=== PATIENT | male | born 1985 | race Caucasian/White ===

== ENCOUNTER 2018-09-01 09:57 | Emergency (ER) | payer OTHER, SELFPAY ==
[2018-09-01 10:03] VITALS: BP 144/103; PULSE 66; RESP 14; TEMP 36.7; O2SAT 100; BMI 32.1
--- NOTE | 2018-09-01 11:09 | ED.BACK ---
HPI - Back Pain/Injury <Salena Montana PA-C - Last Filed: 09/01/18 16:04> General Chief Complaint: Back Pain/Injury Stated Complaint: SEVERE BACK PAIN Time Seen by Provider: 09/01/18 11:09 Source: patient Mode of arrival: ambulatory Limitations: no limitations History of Present Illness HPI Narrative: This healthy 33-year-old male injured his back at on Thursday. He states that he was shoveling snow and started to feel some straining or pulling on his back, then shortly thereafter had sharp pain in his low back and due to this unable to bend and difficulty straightening up. He denies any radiation of the pain into his legs or elsewhere in the back. He indicates it is in the center of his back and a little bit on the right side. He denies any paresthesia in the extremities. He denies any extremity weakness. He denies any groin numbness. He denies any bowel or bladder changes. He states that he rested at home yesterday and has been taking high doses of naproxen, that initially seemed to help a little bit but states he is unable to straighten up now or get comfortable due to the pain. He states that he has some history of arthritis in his back and minor strains but nothing this severe and was not having any problems prior to this injury. He has occasionally used muscle relaxants and pain meds but not needed recently. Related Data Home Medications Medication Instructions Recorded Confirmed No Known Home Medications 09/01/18 09/01/18 Previous Rx's Medication Instructions Recorded cyclobenzaprine 10 mg PO Q8H PRN #14 tab 09/01/18 hydrocodone-acetaminophen [[place]] 1 tab PO Q6H PRN #5 tab 09/01/18 Allergies Allergy/AdvReac Type Severity Reaction Status Date / Time No Known Drug Allergies Allergy Verified 09/01/18 10:19 Review of Systems <Salena Montana PA-C - Last Filed: 09/01/18 16:04> Review of Systems ROS Unobtainable: All systems reviewed & are unremarkable except as noted in HPI and below PFSH <Salena Montana PA-C - Last Filed: 09/01/18 16:04> Medical History Lumbar degenerative disc disease (Chronic) Surgical History No history of previous surgery (Chronic) Social History Smoking Status: Current every day smoker Social History Smoking Status: Current every day smoker Comment: occ ETOH Exam <Salena Montana PA-C - Last Filed: 09/01/18 16:04> Narrative Exam Narrative: GENERAL APPEARANCE: Patient sitting comfortably, in no distress. PULMONARY: Lungs clear to auscultation bilaterally CV: Regular rhythm regular without murmur, normal S1 and S2, no S3 or S4 MUSCULOSKELETAL: No point tenderness over the lumbar spine or musculature. He can move independently from sit to stand. He stands with spine flexed, can straighten up but stiff with extension. Slightly reduced the right lateral bend and rotation secondary to tenderness. Lower extremity strength 5/5 bilateral hip flexors, knee extensors, foot plantar flexion. Negative modified straight leg raise NEUROLOGIC: Bilateral patellar and Achilles DTRs 2+ Initial Vital Signs Initial Vital Signs: Vital Signs Temperature 98.1 F 09/01/18 10:03 Pulse Rate 66 09/01/18 10:03 Respiratory Rate 14 09/01/18 10:03 Blood Pressure 144/103 H 09/01/18 10:03 Pulse Oximetry 100 09/01/18 10:03 <Michaela Mayberry DO - Last Filed: 09/01/18 16:25> Initial Vital Signs Initial Vital Signs: Vital Signs Temperature 98.1 F 09/01/18 10:03 Pulse Rate 66 09/01/18 10:03 Respiratory Rate 14 09/01/18 10:03 Blood Pressure 144/103 H 09/01/18 10:03 Pulse Oximetry 100 09/01/18 10:03 Course <Salena Montana PA-C - Last Filed: 09/01/18 16:04> Orders Ordered: Discontinued Medications Cyclobenzaprine HCl (Flexeril) 10 mg PO NOW ONE Stop: 09/01/18 11:36 Last Admin: 09/01/18 11:44 Dose: 10 mg Vital Signs - 8 hr 09/01/18 10:03 09/01/18 12:13 Temperature 98.1 F Pulse Rate 66 60 Respiratory Rate 14 16 Blood Pressure 144/103 H Blood Pressure [Left Arm] 129/83 Pulse Oximetry 100 96 <Michaela Mayberry DO - Last Filed: 09/01/18 16:25> Orders Ordered: Discontinued Medications Cyclobenzaprine HCl (Flexeril) 10 mg PO NOW ONE Stop: 09/01/18 11:36 Last Admin: 09/01/18 11:44 Dose: 10 mg Vital Signs - 8 hr 09/01/18 10:03 09/01/18 12:13 Temperature 98.1 F Pulse Rate 66 60 Respiratory Rate 14 16 Blood Pressure 144/103 H Blood Pressure [Left Arm] 129/83 Pulse Oximetry 100 96 Discharge Plan Departure Patient Disposition: Home Clinical Impression: Strain of lumbar region Qualifiers: Encounter type: initial encounter Qualified Code(s): S39.012A - Strain of muscle, fascia and tendon of lower back, initial encounter Discharge Date/Time: 09/01/18 12:23 Interventions: ED Discharge Assessment Last Done: 09/01/18 12:22 Instructions: DI for Low Back Pain, Activity May Be Better then Rest for Low Back Pain Recovery Activity Restrictions/Additional Instructions: Please return as we talked about if you have acutely worsening symptoms, or new symptoms such as weakness in your extremities or inability to urinate. Otherwise, please avoid lifting and bending, but gentle activity and walking are okay and may be helpful. Do not take any more naproxen or NSAIDs today, but tomorrow you can continue 2 tabs twice daily (that is the maximum dose). You can take the muscle relaxant cyclobenzaprine as needed, but remember it may make you sleepy and to avoid driving. I have also given you a few hydrocodone acetaminophen to take if needed for the next day or 2 the that has helped you in the past. We have scheduled you for a follow-up appointment at the [facility] clinic here in [facility] tomorrow at 2:00 p.m. check-in. Please bring your L&I information as well as your regular [employer] info Prescriptions: New cyclobenzaprine 10 mg tablet 10 mg PO Q8H PRN (Reason: muscle spasm) Qty: 14 RF: 0 hydrocodone-acetaminophen [[place]] 5-325 mg tablet 1 tab PO Q6H PRN (Reason: acute back pain) Qty: 5 RF: 0 No Action No Known Home Medications RF: 0 Referrals: [facility] [Provider Group] <Michaela Mayberry DO - Last Filed: 09/01/18 16:25> Cosign ED Attending Cosignature Attestation: I was immediately available in the department for consultation. This documentation has been reviewed and I agree with assessment and plan. Supervised by Michaela Mayberry DO
--- NOTE | 2018-09-01 11:14 | PC.NURSE ---
States was snow plowing 2 days ago and has back pain. States prior back pain episodes have resolved in 2 days but this time it did not. States feels out of alignment.
[2018-09-01] MEDS: CYCLOBENZAPRINE 10 MG TABLET PO (11:44)
--- NOTE | 2018-09-01 11:48 | ED_ITS ---
HPI - Back Pain/Injury <Salena Montana PA-C - Last Filed: 09/01/18 16:04> General Chief Complaint: Back Pain/Injury Stated Complaint: SEVERE BACK PAIN Time Seen by Provider: 09/01/18 11:09 Source: patient Mode of arrival: ambulatory Limitations: no limitations History of Present Illness HPI Narrative: This healthy 33-year-old male injured his back at on Thursday. He states that he was shoveling snow and started to feel some straining or pulling on his back, then shortly thereafter had sharp pain in his low back and due to this unable to bend and difficulty straightening up. He denies any radiation of the pain into his legs or elsewhere in the back. He indicates it is in the center of his back and a little bit on the right side. He denies any paresthesia in the extremities. He denies any extremity weakness. He denies any groin numbness. He denies any bowel or bladder changes. He states that he rested at home yesterday and has been taking high doses of naproxen, that initia lly seemed to help a little bit but states he is unable to straighten up now or get comfortable due to the pain. He states that he has some history of arthritis in his back and minor strains but nothing this severe and was not having any problems prior to this injury. He has occasionally used muscle relaxants and pain meds but not needed recently. Related Data Home Medications Medication Instructions Recorded Confirmed No Known Home Medications 09/01/18 09/01/18 Previous Rx's Medication Instructions Recorded cyclobenzaprine 10 mg PO Q8H PRN #14 tab 09/01/18 hydrocodone-acetaminophen [[place]] 1 tab PO Q6H PRN #5 tab 09/01/18 Allergies Allergy/AdvReac Type Severity Reaction Status Date / Time No Known Drug Allergies Allergy Verified 09/01/18 10:19 Review of Systems <ROBERTO Grayson Last Filed: 09/01/18 16:04> Review of Systems ROS Unobtainable: All systems reviewed & are unremarkable except as noted in HPI and below PFSH <Salena Montana PA-C - Last Filed: 09/01/18 16:04> Medical History Lumbar degenerative disc disease (Chronic) Surgical History No history of previous surgery (Chronic) Social History Smoking Status: Current every day smoker Social History Smoking Status: Current every day smoker Comment: occ ETOH Exam <Salena Montana PA-C - Last Filed: 09/01/18 16:04> Narrative Exam Narrative: GENERAL APPEARANCE: Patient sitting comfortably, in no distress. PULMONARY: Lungs clear to auscultation bilaterally CV: Regular rhythm regular without murmur, normal S1 and S2, no S3 or S4 MUSCULOSKELETAL: No point tenderness over the lumbar spine or musculature. He can move independently from sit to stand. He stands with spine flexed, can straighten up but stiff with extension. Slightly reduced the right lateral bend and rotation secondary to tenderness. Lower extremity strength 5/5 bilateral hip flexors, knee extensors, foot plantar flexion. Negative modified straight leg raise NEUROLOGIC: Bilateral patellar and Achilles DTRs 2+ Initial Vital Signs Initial Vital Signs: Vital Signs Temperature 98.1 F 09/01/18 10:03 Pulse Rate 66 09/01/18 10:03 Respiratory Rate 14 09/01/18 10:03 Blood Pressure 144/103 H 09/01/18 10:03 Pulse Oximetry 100 09/01/18 10:03 <Michaela Mayberry DO - Last Filed: 09/01/18 16:25> Initial Vital Signs Initial Vital Signs: Vital Signs Temperature 98.1 F 09/01/18 10:03 Pulse Rate 66 09/01/18 10:03 Respiratory Rate 14 09/01/18 10:03 Blood Pressure 144/103 H 09/01/18 10:03 Pulse Oximetry 100 09/01/18 10:03 Course <Salena Montana PA-C - Last Filed: 09/01/18 16:04> Orders Ordered: Discontinued Medications Cyclobenzaprine HCl (Flexeril) 10 mg PO NOW ONE Stop: 09/01/18 11:36 Last Admin: 09/01/18 11:44 Dose: 10 mg Vital Signs - 8 hr 09/01/18 10:03 09/01/18 12:13 Temperature 98.1 F Pulse Rate 66 60 Respiratory Rate 14 16 Blood Pressure 144/103 H Blood Pressure [Left Arm] 129/83 Pulse Oximetry 100 96 <Michaela Mayberry, - Last Filed: 09/01/18 16:25> Orders Ordered: Discontinued Medications Cyclobenzaprine HCl (Flexeril) 10 mg PO NOW ONE Stop: 09/01/18 11:36 Last Admin: 09/01/18 11:44 Dose: 10 mg Vital Signs - 8 hr 09/01/18 10:03 09/01/18 12:13 Temperature 98.1 F Pulse Rate 66 60 Respiratory Rate 14 16 Blood Pressure 144/103 H Blood Pressure [Left Arm] 129/83 Pulse Oximetry 100 96 Discharge Plan Departure Patient Disposition: Home Clinical Impression: Strain of lumbar region Qualifiers: Encounter type: initial encounter Qualified Code(s): S39.012A - Strain of muscle, fascia and tendon of lower back, initial encounter Discharge Date/Time: 09/01/18 12:23 Interventions: ED Discharge Assessment Last Done: 09/01/18 12:22 Instructions: DI for Low Back Pain, Activity May Be Better then Rest for Low Back Pain Recovery Activity Restrictions/Additional Instructions: Please return as we talked about if you have acutely worsening symptoms, or new symptoms such as weakness in your extremities or inability to urinate. Otherwise, please avoid lifting and bending, but gentle activity and walking are okay and may be helpful. Do not take any more naproxen or NSAIDs today, but tomorrow you can continue 2 tabs twice daily (that is the maximum dose). You can take the muscle relaxant cyclobenzaprine as needed, but remember it may make you sleepy and to avoid driving. I have also given you a few hydrocodone acetaminophen to take if needed for the next day or 2 the that has helped you in the past. We have scheduled you for a follow-up appointment at the [facility] clinic here in [facility] tomorrow at 2:00 p.m. check-in. Please bring your L&I information as well as your regular [employer] info Prescriptions: New cyclobenzaprine 10 mg tablet 10 mg PO Q8H PRN (Reason: muscle spasm) Qty: 14 RF: 0 hydrocodone-acetaminophen [[place]] 5-325 mg tablet 1 tab PO Q6H PRN (Reason: acute back pain) Qty: 5 RF: 0 No Action No Known Home Medications RF: 0 Referrals: [facility] [Provider Group] <Michaela Mayberry DO - Last Filed: 09/01/18 16:25> Cosign ED Attending Cosignature Attestation: I was immediately available in the department for consultation. This documentation has been reviewed and I agree with assessment and plan. Supervised by Michaela Mayberry DO
[2018-09-01 12:13] VITALS: BP 129/83; PULSE 60; RESP 16; O2SAT 96
== END 2018-09-01 12:23 | disposition home or self-care (01) ==
PROVIDERS: Emergency Provider Internal Medicine
DX: S39.012A Strain of muscle, fascia and tendon of lower back, initial encounter (principal); X50.3XXA Overexertion from repetitive movements, initial encounter
CPT/HCPCS: 99282; 99283

== ENCOUNTER 2020-12-11 10:34 | Emergency (ER) | payer OTHER, SELFPAY ==
[2020-12-11 10:36] VITALS: BP 171/91; PULSE 85; RESP 18; TEMP 36.9; O2SAT 98
--- NOTE | 2020-12-11 10:41 | DI.RAD.S_ITS ---
PROCEDURE: XR SHOULDER LT MIN 2V INDICATIONS: strain TECHNIQUE: 3 views of the shoulder were acquired. COMPARISON: None. FINDINGS: Bones: No fractures or dislocations. No suspicious bony lesions. Visualized ribs appear intact. Soft tissues: No suspicious soft tissue calcifications. IMPRESSION: No acute shoulder fracture or dislocation. Dictated by: Chadwick Quintanilla M.D. on 12/11/2020 at 11:15 Approved by: Chadwick Quintanilla M.D. on 12/11/2020 at 11:16
--- NOTE | 2020-12-11 10:44 | PC.NURSE ---
ROM intact but sore when his arm is level with shoulder
[2020-12-11 13:00] VITALS: PULSE 74
--- NOTE | 2020-12-11 13:11 | ED_ITS ---
HPI - Extremity Injury (Upper) General Chief Complaint: Extremity Injury, Upper Stated Complaint: left shoulder popped out Time Seen by Provider: 12/11/20 13:11 Source: patient Mode of arrival: Ambulatory Limitations: no limitations History of Present Illness HPI narrative: 35-year-old male former smoker with noncontributory medical history presents with a chief complaint of a left shoulder injury suffered when he started slipping from a ladder and in his attempt to reach up and slow his fall felt a pop and increased pain. Patient denies any numbness, tingling or weakness. His pain is worse with motion and improves with rest. Denies any other injury is otherwise well and free of complaint. Related Data Previous Rx's Medication Instructions Recorded cyclobenzaprine 10 mg PO Q8H PRN #14 tab 09/01/18 hydrocodone-acetaminophen [[place]] 1 tab PO Q6H PRN #5 tab 09/01/18 ketorolac 10 mg PO Q6H PRN #14 tab 12/11/20 Allergies Allergy/AdvReac Type Severity Reaction Status Date / Time No Known Drug Allergies Allergy Verified 09/01/18 10:19 Review of Systems Constitutional Constitutional: Denies chills, Denies fatigue, Denies fever(s), Denies frequent falls, Denies lethargy and Denies weakness Eyes Eyes: Denies change in vision, Denies eye discharge, Denies irritation and Denies loss of vision ENT Ears, Nose, Mouth, and Throat: Denies change in voice, Denies dizziness, Denies neck pain, Denies sore throat and Denies throat swelling Cardiovascular Cardiovascular: Denies chest pain, Denies irregular heart rhythm, Denies lightheadedness, Denies palpitations, Denies dyspnea, Denies dyspnea on exertion and Denies orthopnea Respiratory Respiratory: Denies cough, Denies dyspnea, Denies dyspnea on exertion and Denies wheezing Gastrointestinal Gastrointestinal: Denies abdominal pain, Denies change in bowel habits, Denies diarrhea, Denies nausea and Denies vomiting Musculoskeletal Musculoskeletal: Reports arthralgias, Denies neck pain and Denies numbness Integumentary/Breasts Skin/Breast: Denies pruritus, Denies erythema, Denies rash and Denies wounds Neurologic Neurologic: Denies behavioral changes, Denies confusion, Denies dizziness, Denies frequent falls, Denies loss of vision, Denies numbness and Denies weakness Psychiatric Psychiatric: Denies anxiety, Denies behavioral changes, Denies confusion, Denies depression, Denies homicidal ideation and Denies suicidal ideation Endocrine Endocrine: Denies fatigue, Denies flushing and Denies palpitations Hematologic/Lymphatic Hematologic/Lymphatic: Denies easy bruising Allergic/Immunologic Allergic/Immunologic: Denies urticaria, Denies throat swelling and Denies wheezing Patient History Medical History Lumbar degenerative disc disease Surgical History No history of previous surgery Social History Smoking Status: Former smoker Smoking Status: Former smoker alcohol intake frequency: 0-2 drinks per day Substance Use Type: does not use Exam Narrative Exam Narrative: GENERAL: [35] year old patient appears stated age. Well- nourished, well-developed patient, in mild distress. HEAD: Atraumatic. Normocephalic. EYES: Pupils equal round and reactive. Extraocular motions intact. No scleral icterus. No injection or drainage. ENT: Nose without bleeding, purulent drainage. Throat without erythema, tonsillar hypertrophy or exudate. Airway patent. NECK: Trachea midline. Non tender CARDIOVASCULAR: Regular rate and rhythm without murmurs, gallops, or rubs. RESPIRATORY: Clear to auscultation. Breath sounds equal bilaterally. No wheezes, rales, or rhonchi. GASTROINTESTINAL: Abdomen soft, non-tender, nondistended. EXTREMITIES: full but painful range of motion of left shoulder, no numbness, tingling or weakness BACK: Nontender without deformity or crepitance. No flank tenderness. NEURO: AOx3. SKIN: No rash or erythema of visible areas Initial Vital Signs Initial Vital Signs: Vital Signs Temperature 98.4 F 12/11/20 10:36 Pulse Rate 85 12/11/20 10:36 Respiratory Rate 18 12/11/20 10:36 Blood Pressure 171/91 H 12/11/20 10:36 Pulse Oximetry 98 12/11/20 10:36 Course Orders Ordered: ED Orders 12/11/20 10:41 XR shoulder LT min 2V Stat Vital Signs Vital signs: Vital Signs - 8 hr 12/11/20 10:36 Temperature 98.4 F Pulse Rate 85 Respiratory Rate 18 Blood Pressure 171/91 H Pulse Oximetry 98 MDM - Extremity Injury (Upper) Imaging Data Extremity x-ray #1: Radiologist's Impression: [address] [id number] ReportSigned Patient: Scottie Phelps [facility]#: [id number]: 1985Acct:[id number]/Sex: 35 / MDate of Service: 12/11/20Loc: EDAccession Number: [id number] Procedure: XR shoulder LT min 2V Ordering Provider: Michaela Mayberry D.O. PROCEDURE: XR SHOULDER LT MIN 2V INDICATIONS: strain TECHNIQUE: 3 views of the shoulder were acquired. COMPARISON: None. FINDINGS: Bones: No fractures or dislocations. No suspicious bony lesions. Visualized ribs appear intact. Soft tissues: No suspicious soft tissue calcifications. IMPRESSION: No acute shoulder fracture or dislocation. Dictated by: Chadwick Quintanilla M.D. on 12/11/2020 at 11:15 Approved by: Chadwick Quintanilla M.D. on 12/11/2020 at 11:16 Discharge Plan Departure Patient Disposition: Home Clinical Impression: Sprain of left shoulder Qualifiers: Encounter type: initial encounter Shoulder sprain type: unspecified sprain Qualified Code(s): S43.402A - Unspecified sprain of left shoulder joint, initial encounter Instructions: DI for Shoulder Sprain Activity Restrictions/Additional Instructions: *You have been diagnosed with [left shoulder sprain] *What to do: *Please continue to take your regular medications as directed. [ x] New medication prescriptions sent to your pharmacy: [[facility]] [ ] New medication written as a paper prescription [ ] No new medications given *Please follow up with your primary care provider in 2-3 days, call for an appointment. Let them know you were seen in the Emergency Department and that we ask that you be seen in follow up. We will electronically transmit a record of today's note if your PCP is in our system *If you do not have a primary care provider please contact the [facility] Resource line at [phone]. They will ask some questions about your medical history and help get you set up with a doctor in the community. *Return to Emergency Department if you should have any new, worsening or concerning symptoms, such as [fever greater than 101 F, shaking chills, worsening pain, persistent vomiting or other bothersome symptoms] Prescriptions: New ketorolac 10 mg tablet 10 mg PO Q6H PRN (Reason: pain) Qty: 14 RF: 0 No Action cyclobenzaprine 10 mg tablet 10 mg PO Q8H PRN (Reason: muscle spasm) Qty: 14 RF: 0 hydrocodone-acetaminophen [[place]] 5-325 mg tablet 1 tab PO Q6H PRN (Reason: acute back pain) Qty: 5 RF: 0 Stand Alone Forms: Work Release Note
== END 2020-12-11 13:28 | disposition home or self-care (01) ==
PROVIDERS: Emergency Provider Emergency Medicine
DX: S43.402A Unspecified sprain of left shoulder joint, initial encounter (principal); W01.0XXA Fall on same level from slipping, tripping and stumbling without subsequent striking against object, initial encounter
CPT/HCPCS: 73030; 99283